=== PATIENT | male | born 1950 | race Caucasian/White ===

== ENCOUNTER 2020-05-01 15:57 | Emergency (ER) | payer MEDICARE ==
--- NOTE | 2020-05-01 17:49 | EDM.PDOC ---
ED HPI GENERAL MEDICAL PROBLEM - General Chief Complaint: General Stated Complaint: FEVER Time Seen by Provider: 05/01/20 16:05 Source of Information: Reports: Patient History Limitations: Reports: No Limitations - History of Present Illness INITIAL COMMENTS - FREE TEXT/NARRATIVE: Patient presented to the ED from the clinic because of 1 day history of cough and cold, fever. There is no N/V/D. Headache Pain Score (Numeric/FACES): 4 - Related Data Allergies Allergy/AdvReac Type Severity Reaction Status Date / Time Latex, Natural Rubber Allergy Unknown UNKNOWN Verified 05/01/20 16:07 Home Meds: Home Meds Cholestyramine (With Sugar) [Questran Powder] 4 - 8 gm PO TIDAC PRN 08/24/14 [History] Citalopram Hydrobromide [Celexa] 20 mg PO DAILY 08/24/14 [History] Docusate Sodium [Colace] 4 tab PO ASDIRECTED PRN 08/24/14 [History] Finasteride [Proscar] 5 mg PO DAILY 08/24/14 [History] Ketoconazole [Nizoral 2% Crm] 1 applic TOP BID PRN 08/24/14 [History] Metoclopramide [Reglan] 5 mg PO TIDAC 08/24/14 [History] Omeprazole [Prilosec] 20 mg PO BIDM 08/24/14 [History] Sucralfate [Carafate] 1 gm PO ASDIRECTED 08/24/14 [History] Acetaminophen [Pain Reliever] 500 mg PO BEDTIME 09/06/15 [History] Ciprofloxacin HCl [Cipro] 250 mg PO BID #20 tablet 08/20/16 [Rx] oxyCODONE HCl/Acetaminophen [Percocet 5-325 mg Tablet] 1 each PO Q4HR PRN #24 tablet 08/20/16 [Rx] Past Medical History HEENT History: Reports: Cataract, Hard of Hearing, Impaired Vision, Retinal Detachment Cardiovascular History: Reports: Hypertension Respiratory History: Reports: None Gastrointestinal History: Reports: Cholelithiasis, GERD, Other (See Below) Other Gastrointestinal History: 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 RASH ON LEGS TREATED BY PRESCRIBED CREAMS NEEDED - Past Surgical History Head Surgeries/Procedures: Reports: None HEENT Surgical History: Reports: Cataract Surgery, Eye Surgery, Oral Surgery, Retinal Social & Family History - Tobacco Use Smoking Status *Q: Former Smoker Used Tobacco, but Quit: Yes Month/Year Tobacco Last Used: Many years ago - Caffeine Use Caffeine Use: Reports: Coffee - Recreational Drug Use Recreational Drug Use: No ED ROS GENERAL - Review of Systems Review Of Systems: See Below Constitutional: Reports: Fever HEENT: Reports: No Symptoms Respiratory: Reports: Cough. Denies: Shortness of Breath Cardiovascular: Reports: No Symptoms Endocrine: Reports: No Symptoms GI/Abdominal: Reports: No Symptoms : Reports: No Symptoms Musculoskeletal: Reports: No Symptoms Skin: Reports: No Symptoms Neurological: Reports: No Symptoms Psychiatric: Reports: No Symptoms Hematologic/Lymphatic: Reports: No Symptoms Immunologic: Reports: No Symptoms ED EXAM, GENERAL - Physical Exam Exam: See Below Exam Limited By: No Limitations General Appearance: Alert, No Apparent Distress Eye Exam: Bilateral Eye: PERRL Ears: Normal External Exam, Normal Canal Nose: Normal Inspection, Normal Mucosa, No Blood Throat/Mouth: Normal Inspection, Normal Lips, Normal Teeth, Normal Gums Head: Atraumatic, Normocephalic Neck: Normal Inspection, Supple, Non-Tender, Full Range of Motion Respiratory/Chest: No Respiratory Distress, Lungs Clear, Normal Breath Sounds Cardiovascular: Normal Peripheral Pulses, Regular Rate, Rhythm, No Edema, No Gallop, No JVD, No Murmur GI/Abdominal: Normal Bowel Sounds, Soft, Non-Tender, No Organomegaly Back Exam: Normal Inspection, Full Range of Motion Extremities: Normal Inspection, Normal Range of Motion, Non-Tender, No Pedal Edema, Normal Capillary Refill Neurological: Alert, Oriented, CN II-XII Intact, Normal Cognition, Normal Gait, Normal Reflexes, No Motor/Sensory Deficits Course - Vital Signs Text/Narrative:: Labs/CXR was reviewed with patient Last Recorded V/S: Last Vital Signs Temp 36.3 C 05/01/20 17:52 Pulse 70 05/01/20 17:52 Resp 18 05/01/20 17:52 BP 129/75 05/01/20 17:52 Pulse Ox 98 05/01/20 17:52 - Orders/Labs/Meds Orders: Active Orders 24 hr Category Date Time Status Chest 1V Frontal [CR] Stat Exams 05/01/20 16:06 Taken Isolation [COMM] Routine Oth 05/01/20 16:07 Ordered Labs: Laboratory Tests 05/01/20 05/01/20 05/01/20 Range/Units 16:17 16:20 16:20 WBC 10.0 (4.5-12.0) X10-3/uL RBC 4.64 (4.30-5.75) x10(6)uL Hgb 13.7 (13.5-17.8) g/dL Hct 40.9 (30.0-51.3) % MCV 88.2 (80-96) fL MCH 29.5 (27.7-33.6) pg MCHC 33.4 (32.2-35.4) g/dL RDW 12.4 (11.5-15.5) % Plt Count 292 (125-369) X10(3)uL MPV 5.3 L (7.4-10.4) fL Neut % (Auto) 77.8 (46-82) % Lymph % (Auto) 11.6 L (13-37) % [place] % (Auto) 10.3 (4-12) % Eos % (Auto) 0 L (1.0-5.0) % Baso % (Auto) 0 (0-2) % Neut # (Auto) 7.8 (1.6-8.3) # Lymph # (Auto) 1.2 (0.6-5.0) # [place] # (Auto) 1.0 (0.0-1.3) # Eos # (Auto) 0.0 (0.0-0.8) # Baso # (Auto) 0.0 (0.0-0.2) # Sodium 131 L (135-145) mmol/L Potassium 4.0 (3.5-5.3) mmol/L Chloride 96 L (100-110) mmol/L Carbon Dioxide 26 (21-32) mmol/L BUN 16 (7-18) mg/dL Creatinine 1.4 H (0.70-1.30) mg/dL Est Cr Clr Drug Dosing 43.04 mL/min Estimated GFR (MDRD) 50 L (>60) BUN/Creatinine Ratio 11.4 (9-20) Glucose 141 H (80-116) mg/dL Lactic Acid (0.4-2.0) mmol/L Calcium 9.3 (8.6-10.2) mg/dL Total Bilirubin 0.9 (0.1-1.3) mg/dL AST 15 (5-25) IU/L ALT 16 (12-36) U/L Alkaline Phosphatase 73 (56-112) IU/L Total Protein 7.6 (6.0-8.0) g/dL Albumin 3.8 (3.2-4.6) g/dL Globulin 3.8 g/dL Albumin/Globulin Ratio 1.0 Urine Color Yellow (YELLOW) Urine Appearance Clear (CLEAR) Urine pH 5.0 (5.0-6.5) Ur Specific [place] 1.005 L (1.010-1.025) Urine Protein Negative (NEGATIVE) mg/dL Urine Glucose (UA) Normal (NORMAL) mg/dL Urine Ketones 15 H (NEGATIVE) mg/dL Urine Occult Blood Negative (NEGATIVE) Urine Nitrite Negative (NEGATIVE) Urine Bilirubin Negative (NEGATIVE) Urine Urobilinogen Normal (NEGATIVE) mg/dL Ur Leukocyte Esterase Negative (NEGATIVE) Urine RBC 0-5 (0-5) Urine WBC 0-5 (0-5) Ur Squamous Epith Cells Occasional (NS,R,O) Urine Bacteria Few H (NS) SARS-CoV-2 RNA (LEVON) (NEGATIVE) 05/01/20 05/01/20 Range/Units 16:20 16:25 WBC (4.5-12.0) X10-3/uL RBC (4.30-5.75) x10(6)uL Hgb (13.5-17.8) g/dL Hct (30.0-51.3) % MCV (80-96) fL MCH (27.7-33.6) pg MCHC (32.2-35.4) g/dL RDW (11.5-15.5) % Plt Count (125-369) X10(3)uL MPV (7.4-10.4) fL Neut % (Auto) (46-82) % Lymph % (Auto) (13-37) % [place] % (Auto) (4-12) % Eos % (Auto) (1.0-5.0) % Baso % (Auto) (0-2) % Neut # (Auto) (1.6-8.3) # Lymph # (Auto) (0.6-5.0) # [place] # (Auto) (0.0-1.3) # Eos # (Auto) (0.0-0.8) # Baso # (Auto) (0.0-0.2) # Sodium (135-145) mmol/L Potassium (3.5-5.3) mmol/L Chloride (100-110) mmol/L Carbon Dioxide (21-32) mmol/L BUN (7-18) mg/dL Creatinine (0.70-1.30) mg/dL Est Cr Clr Drug Dosing mL/min Estimated GFR (MDRD) (>60) BUN/Creatinine Ratio (9-20) Glucose (80-116) mg/dL Lactic Acid 0.9 (0.4-2.0) mmol/L Calcium (8.6-10.2) mg/dL Total Bilirubin (0.1-1.3) mg/dL AST (5-25) IU/L ALT (12-36) U/L Alkaline Phosphatase (56-112) IU/L Total Protein (6.0-8.0) g/dL Albumin (3.2-4.6) g/dL Globulin g/dL Albumin/Globulin Ratio Urine Color (YELLOW) Urine Appearance (CLEAR) Urine pH (5.0-6.5) Ur Specific [place] (1.010-1.025) Urine Protein (NEGATIVE) mg/dL Urine Glucose (UA) (NORMAL) mg/dL Urine Ketones (NEGATIVE) mg/dL Urine Occult Blood (NEGATIVE) Urine Nitrite (NEGATIVE) Urine Bilirubin (NEGATIVE) Urine Urobilinogen (NEGATIVE) mg/dL Ur Leukocyte Esterase (NEGATIVE) Urine RBC (0-5) Urine WBC (0-5) Ur Squamous Epith Cells (NS,R,O) Urine Bacteria (NS) SARS-CoV-2 RNA (LEVON) Negative (NEGATIVE) Departure - Departure Time of Disposition: 17:50 Disposition: Home, Self-Care 01 Condition: Good Clinical Impression: Viral upper respiratory illness - Discharge Information Instructions: Viral Respiratory Infection, [id number] Referrals: Ophelia Keenan, DRAFTING TECHNICIAN [Primary Care Provider] - Forms: ED Department Discharge Additional Instructions: Increase oral fluids Take tylenol 500-650 mg every 4-6 hours as needed for fever pain Follow up as needed Sepsis Event Note (ED) - Evaluation Sepsis Screening Result: No Definite Risk - Focused Exam Vital Signs: Vital Signs Temp Pulse Resp BP Pulse Ox 05/01/20 17:52 36.3 C 70 18 129/75 98 05/01/20 16:28 36.4 C 72 18 122/65 99 05/01/20 16:00 36.5 C 69 18 125/69 98 - My Orders Last 24 Hours: My Active Orders 05/01/20 16:06 Chest 1V Frontal [CR] Stat 05/01/20 16:07 Isolation [COMM] Routine - Assessment/Plan Last 24 Hours: My Active Orders 05/01/20 16:06 Chest 1V Frontal [CR] Stat 05/01/20 16:07 Isolation [COMM] Routine
[2020-05-01 18:25] VITALS: BP 129/75; PULSE 70
--- NOTE | 2020-05-02 16:51 | CR ---
INDICATION: Cough. Fever. CHEST, ONE VIEW: Portable AP upright view of the chest was obtained 05/01/20 - no comparison. Bipolar pacemaker leads are noted with the ventricular lead in the area of the apex of the right ventricle. The heart did not appear grossly enlarged. The aorta is somewhat tortuous with minimal calcifications suggested in the arch. A consolidating pneumonia or effusion was not identified. However, it is difficult to exclude minimal patchy bronchopneumonia at the lung bases which were not particularly well delineated. There also appears to be a degree of hyperaeration of the lungs, and evidence of exogenous obesity. IMPRESSION: No definite acute process, but difficult to exclude minimal patchy bronchopneumonia at the lung bases. MTDD
== END 2020-05-01 18:06 | disposition home or self-care (01) ==
LOC: FB.ED 15:57
DX: J06.9 Acute upper respiratory infection, unspecified (principal); I10 Essential (primary) hypertension; K21.9 Gastro-esophageal reflux disease without esophagitis; F41.9 Anxiety disorder, unspecified; Z87.891 Personal history of nicotine dependence; Z91.040 Latex allergy status; Z20.828 Contact with and (suspected) exposure to other viral communicable diseases
CPT/HCPCS: 36415; 71045; 80053; 81001; 83605; 85025; 87804; 87804-59; 99283-25; U0002

== ENCOUNTER 2020-12-15 01:02 | Observation (INO) | payer MEDICARE ==
[2020-12-15] MEDS ORDERED: Morphine 2 MG/ML SYRINGE IVPUSH ONE (01:32)
--- NOTE | 2020-12-15 01:35 | EDM.PDOC ---
ED HPI GENERAL MEDICAL PROBLEM - General Stated Complaint: SOB Time Seen by Provider: 12/15/20 01:33 Source of Information: Reports: Patient History Limitations: Reports: No Limitations - History of Present Illness INITIAL COMMENTS - FREE TEXT/NARRATIVE: Right sided chest pain since 8PM.Moderate to severe,insidious,progressive. No SOB. Has HTN,HLD.Non smoker. Back Pain Score (Numeric/FACES): 7 Middle Chest Pain Score (Numeric/FACES): 2 - Related Data Allergies Allergy/AdvReac Type Severity Reaction Status Date / Time Latex, Natural Rubber Allergy Unknown UNKNOWN Verified 12/15/20 04:49 Home Meds: Home Meds Cholestyramine (With Sugar) [Questran Powder] 4 gm PO DAILY PRN 08/24/14 [History] Citalopram Hydrobromide [Celexa] 30 mg PO BEDTIME 08/24/14 [History] Metoclopramide [Reglan] 5 mg PO TIDAC 08/24/14 [History] Omeprazole [Prilosec] 20 mg PO BIDAC 08/24/14 [History] Sucralfate [Carafate] 1 gm PO QIDACANDBED 08/24/14 [History] Acetaminophen [Pain Reliever] 500 mg PO BEDTIME 09/06/15 [History] Betamethasone Dipropionate [Diprolene AF 0.05% Crm] 1 applic TOP BID 12/15/20 [History] Ciclopirox [Loprox 0.77% Crm] 1 applic TOP BID 12/15/20 [History] Fluticasone Propionate [Flonase] 2 sprays NASBOTH DAILY 12/15/20 [History] Furosemide 20 mg PO DAILY PRN 12/15/20 [History] Mecobalamin [B12 Active] 1,000 mcg PO DAILY 12/15/20 [History] Rosuvastatin [Crestor] 10 mg PO DAILY 12/15/20 [History] amLODIPine [Norvasc] 7.5 mg PO DAILY 12/15/20 [History] busPIRone [Buspar] 5 mg PO BID 12/15/20 [History] lisinopriL [Lisinopril] 5 mg PO DAILY 12/15/20 [History] Aspirin [Ecotrin EC] 650 mg PO QID tab.ec 12/16/20 [Rx] Magnesium Oxide 500 mg PO BID 12/16/20 [History] Tamsulosin [Flomax] 0.8 mg PO DAILY 12/16/20 [History] Past Medical History HEENT History: Reports: Cataract, Hard of Hearing, Impaired Vision, Retinal D etachment Cardiovascular History: Reports: Hypertension Respiratory History: Reports: None Gastrointestinal History: Reports: Cholelithiasis, GERD, Other (See Below) Other Gastrointestinal History: 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 RASH ON LEGS TREATED BY PRESCRIBED CREAMS NEEDED - Past Surgical History Head Surgeries/Procedures: Reports: None HEENT Surgical History: Reports: Cataract Surgery, Eye Surgery, Oral Surgery, Retinal Social & Family History - Caffeine Use Caffeine Use: Reports: Coffee ED ROS GENERAL - Review of Systems Review Of Systems: Comprehensive ROS is negative, except as noted in HPI. ED EXAM, GENERAL - Physical Exam Exam: See Below Exam Limited By: No Limitations General Appearance: Alert, WD/WN, No Apparent Distress Throat/Mouth: Normal Inspection, Normal Lips Head: Atraumatic Neck: Normal Inspection, Supple Respiratory/Chest: No Respiratory Distress Cardiovascular: Normal Peripheral Pulses, Irregularly Irregular GI/Abdominal: No Distention Back Exam: Normal Inspection Neurological: Alert, Oriented Psychiatric: Normal Affect Skin Exam: Warm #1 Interpretation EKG Date: 12/15/20 Rhythm: A-Fib Comparison: NA - No Prior EKG #2 Interpretation EKG Date: 12/15/20 Rhythm: NSR Comparison: Change From Previous EKG Course - Vital Signs Last Recorded V/S: Last Vital Signs Temp 97.7 F 12/16/20 16:00 Pulse 69 12/16/20 16:00 Resp 16 12/16/20 16:00 BP 123/63 12/16/20 16:00 Pulse Ox 97 12/16/20 16:00 - Orders/Labs/Meds Labs: Laboratory Tests 12/15/20 12/15/20 12/15/20 Range/Units 01:30 01:30 01:30 WBC 10.8 H (3.2-10.1) x10-3/uL RBC 4.33 (3.90-5.90) x10(6)uL Hgb 13.2 (12.9-17.7) g/dL Hct 39.2 (38.3-50.1) % MCV 90.4 (80.8-98.7) fL MCH 30.5 (27.0-33.3) pg MCHC 33.8 (28.7-35.3) g/dL RDW 13.5 (12.4-15.0) % Plt Count 228 (117-477) x10(3)uL MPV 6.2 L (6.7-11.0) fL Neut % (Auto) 77.5 H (40.3-71.8) % Lymph % (Auto) 11.0 L (15.8-45.3) % [place] % (Auto) 9.8 (5.5-15.2) % Eos % (Auto) 1.3 (0.1-6.8) % Baso % (Auto) 0.4 (0.3-3.8) % Neut # (Auto) 8.4 H (1.7-6.9) x10-3/uL Lymph # (Auto) 1.2 (0.5-4.5) x10-3/uL [place] # (Auto) 1.1 (0.0-1.2) x10-3/uL Eos # (Auto) 0.1 (0.0-0.6) x10-3/uL Baso # (Auto) 0.0 (0.0-0.3) x10-3/uL D-Dimer, Quantitative 0.48 (0.0-0.59) mg/LFEU Sodium (135-145) mmol/L Potassium (3.5-5.3) mmol/L Chloride (100-110) mmol/L Carbon Dioxide (21-32) mmol/L BUN (7-18) mg/dL Creatinine (0.70-1.30) mg/dL Est Cr Clr Drug Dosing Estimated GFR (MDRD) (>60) BUN/Creatinine Ratio (9-20) Glucose (80-116) mg/dL Calcium (8.6-10.2) mg/dL Total Bilirubin (0.1-1.3) mg/dL AST (5-25) IU/L ALT (12-36) U/L Alkaline Phosphatase (56-112) IU/L Troponin I 7.0 (4.0-60.3) pg/mL NT-Pro-B Natriuret Pep (<=125) pg/mL Total Protein (6.0-8.0) g/dL Albumin (3.2-4.6) g/dL Globulin g/dL Albumin/Globulin Ratio TSH, Ultra Sensitive (0.36-3.74) IU/mL 12/15/20 12/15/20 12/15/20 Range/Units 01:30 01:30 01:30 WBC (3.2-10.1) x10-3/uL RBC (3.90-5.90) x10(6)uL Hgb (12.9-17.7) g/dL Hct (38.3-50.1) % MCV (80.8-98.7) fL MCH (27.0-33.3) pg MCHC (28.7-35.3) g/dL RDW (12.4-15.0) % Plt Count (117-477) x10(3)uL MPV (6.7-11.0) fL Neut % (Auto) (40.3-71.8) % Lymph % (Auto) (15.8-45.3) % [place] % (Auto) (5.5-15.2) % Eos % (Auto) (0.1-6.8) % Baso % (Auto) (0.3-3.8) % Neut # (Auto) (1.7-6.9) x10-3/uL Lymph # (Auto) (0.5-4.5) x10-3/uL [place] # (Auto) (0.0-1.2) x10-3/uL Eos # (Auto) (0.0-0.6) x10-3/uL Baso # (Auto) (0.0-0.3) x10-3/uL D-Dimer, Quantitative (0.0-0.59) mg/LFEU Sodium 133 L (135-145) mmol/L Potassium 4.3 (3.5-5.3) mmol/L Chloride 98 L (100-110) mmol/L Carbon Dioxide 21 (21-32) mmol/L BUN 19 H (7-18) mg/dL Creatinine 1.3 (0.70-1.30) mg/dL Est Cr Clr Drug Dosing TNP Estimated GFR (MDRD) 54 L (>60) BUN/Creatinine Ratio 14.6 (9-20) Glucose 132 H (80-116) mg/dL Calcium 8.9 (8.6-10.2) mg/dL Total Bilirubin 0.8 (0.1-1.3) mg/dL AST 15 (5-25) IU/L ALT 17 (12-36) U/L Alkaline Phosphatase 94 (56-112) IU/L Troponin I (4.0-60.3) pg/mL NT-Pro-B Natriuret Pep 47 (<=125) pg/mL Total Protein 7.4 (6.0-8.0) g/dL Albumin 3.8 (3.2-4.6) g/dL Globulin 3.6 g/dL Albumin/Globulin Ratio 1.1 TSH, Ultra Sensitive 1.75 (0.36-3.74) IU/mL Meds: Medications Discontinued Medications Generic Name Dose Route Start Last Admin Trade Name Freq PRN Reason Stop Dose Admin Amlodipine Besylate 7.5 mg 12/16/20 10:45 12/16/20 11:36 Amlodipine 5 Mg Tab *Ptom* PO 7.5 mg DAILY RUSSELL Administration Aspirin 324 mg 12/15/20 01:49 12/15/20 01:16 Aspirin 81 Mg Tab.Chew PO 12/15/20 01:50 324 mg ONETIME ONE Administration Aspirin 650 mg 12/16/20 11:25 12/16/20 11:52 Aspirin 325 Mg Tab.Ec PO 650 mg QIDPCANDBED RUSSELL Administration Aspirin 650 mg 12/16/20 17:00 12/16/20 17:09 Aspirin 325 Mg Tab.Ec PO 650 mg QID RUSSELL Administration Buspirone HCl 5 mg 12/16/20 10:45 12/16/20 11:34 Buspirone 10 Mg Tab *Ptom* PO 5 mg BID RUSSELL Administration Citalopram Hydrobromide 30 mg 12/16/20 21:00 Citalopram 20 Mg Tab *Ptom* PO BEDTIME RUSSELL Al Hydroxide/Mg Hydroxide 15 0 ml 12/15/20 02:24 12/15/20 03:13 ml/ Lidocaine HCl 15 ml PO 12/15/20 02:25 30 ml ONETIME ONE Administration Enoxaparin Sodium 40 mg 12/15/20 02:15 12/15/20 04:12 Enoxaparin 40 Mg/0.4 Ml Syringe SUBCUT 40 mg Q24H RUSSELL Administration Enoxaparin Sodium 40 mg 12/15/20 21:00 12/15/20 21:35 Enoxaparin 40 Mg/0.4 Ml Syringe SUBCUT 40 mg BEDTIME RUSSELL Administration Hydromorphone HCl 1 mg 12/15/20 13:27 12/15/20 18:56 Hydromorphone 2 Mg/Ml Sdv IVPUSH 1 mg Q2H PRN Administration Pain (moderate 4-6) Potassium Chloride/Dextrose/Sod Cl 1,000 mls @ 100 mls/hr 12/15/20 09:15 12/16/20 07:46 D5 Ns With 20 Meq Kcl IV 100 mls/hr ASDIRECTED RUSSELL Administration Iopamidol 100 ml 12/15/20 14:30 12/15/20 15:05 Iopamidol 755 Mg/Ml 100 Ml Bottle IV 100 ml . DIRECTED RUSSELL Administration Lisinopril 5 mg 12/16/20 10:45 12/16/20 11:37 Lisinopril 5 Mg Tab *Ptom* PO 5 mg DAILY RUSSELL Administration Methylprednisolone Sodium Succinate 40 mg 12/15/20 17:00 12/16/20 05:23 Methylprednisolone Sodium Succinate 40 Mg/1 Ml Sdv IVPUSH 40 mg Q6H RUSSELL Administration Metoclopramide HCl 5 mg 12/15/20 11:30 12/16/20 17:11 Metoclopramide 5 Mg Tab *Ptom* PO 5 mg TIDAC RUSSELL Administration Morphine Sulfate 2 mg 12/15/20 01:32 12/15/20 01:44 Morphine 2 Mg/Ml Syringe IVPUSH 12/15/20 01:33 2 mg ONETIME ONE Administration Morphine Sulfate 2 mg 12/15/20 02:03 12/15/20 03:13 Morphine 2 Mg/Ml Syringe IVPUSH 2 mg Q2H PRN Administration Pain (severe 7-10) Nitroglycerin 0.4 mg 12/15/20 01:50 12/15/20 01:17 Nitroglycerin 0.4 Mg Tab.Sl SL 12/15/20 01:51 0.4 mg ONETIME ONE Administration Non-Formulary Medication 4 gm 12/16/20 10:32 Cholestyramine (With Sugar) [Questran Powder] PO DAILY PRN Other Omeprazole [Prilosec 20 mg 12/16/20 17:30 12/16/20 17:11 ] 20 Mg Capsule.Dr * PO 20 mg Ptom* BIDAC RUSSELL Administration Ondansetron HCl 4 mg 12/15/20 02:03 12/15/20 12:56 Ondansetron 4 Mg/2 Ml Sdv IV 4 mg Q4H PRN Administration Nausea/Vomiting Pantoprazole Sodium 40 mg 12/15/20 14:15 12/15/20 15:41 Pantoprazole 40 Mg Vial IVPUSH 40 mg Q12H RUSSELL Administration Pantoprazole Sodium 40 mg 12/16/20 06:00 12/16/20 17:55 Pantoprazole 40 Mg Vial IVPUSH Not Given Q12H RUSSELL Polyethylene Glycol 17 gm 12/16/20 10:45 12/16/20 11:35 Polyethylene Glycol 3350 Powder 17 Gm Packet PO 17 gm DAILY RUSSELL Administration Rosuvastatin Calcium 10 mg 12/17/20 09:00 Rosuvastatin 10 Mg Tab *Ptom* PO DAILY RUSSELL Sodium Chloride 10 ml 12/15/20 04:51 Sodium Chloride 0.9% 10 Ml Syringe FLUSH ASDIRECTED PRN IV Use Sucralfate 1 gm 12/16/20 11:30 12/16/20 17:10 Sucralfate 1 Gm Tab *Ptom* PO 1 gm QIDACANDBED RUSSELL Administration Departure - Departure Time of Disposition: 09:29 Disposition: Refer to Observation Condition: Good Clinical Impression: Atypical chest pain - Problem List & Annotations (1) Chest pain SNOMED Code(s): 33434927 Code(s): R07.9 - CHEST PAIN, UNSPECIFIED Status: Acute Qualifiers: Chest pain type: unspecified Qualified Code(s): R07.9 - Chest pain, unspecified (2) Afib SNOMED Code(s): 80491499 Code(s): I48.91 - UNSPECIFIED ATRIAL FIBRILLATION Status: Acute Qualifiers: Atrial fibrillation type: unspecified Qualified Code(s): I48.91 - Unspecified atrial fibrillation (3) HTN (hypertension) SNOMED Code(s): 39759324 Code(s): I10 - ESSENTIAL (PRIMARY) HYPERTENSION Status: Acute Qualifiers: Hypertension type: essential hypertension Qualified Code(s): I10 - Essential (primary) hypertension (4) HLD (hyperlipidemia) SNOMED Code(s): 38006360 Code(s): E78.5 - HYPERLIPIDEMIA, UNSPECIFIED Status: Acute Qualifiers: Hyperlipidemia type: unspecified Qualified Code(s): E78.5 - Hyperlipidemia, unspecified - Problem List Review Problem List Initiated/Reviewed/Updated: Yes - Assessment/Plan Plan: Admit for observation
[2020-12-15] MEDS ORDERED: Aspirin 81 MG Tab.Chew PO ONE (01:49)
[2020-12-15] MEDS ORDERED: Nitroglycerin 0.4 MG Tab.SL SL ONE (01:50)
[2020-12-15] MEDS ORDERED: Morphine 2 MG/ML SYRINGE IVPUSH PRN (02:03)
[2020-12-15] MEDS ORDERED: Enoxaparin 40 MG/0.4 ML Syringe SUBCUT SCH ×2 (02:15→21:00)
[2020-12-15] MEDS ORDERED: Alum Hydroxide/Mag Hydroxide 15 ML, Lidocaine 2% 15 ML PO ONE ×2 (02:24)
[2020-12-15] MEDS: Ondansetron 4 MG/2 ML SDV IV PRN ×2 (03:36→12:56)
[2020-12-15] MEDS ORDERED: Sodium Chloride 0.9% 10 ML Syringe FLUSH PRN (04:51)
[2020-12-15] MEDS: Dextrose 5%-0.9% NaCl with KCl 1,000 ML IV SCH ×2 (10:02→21:35)
[2020-12-15] MEDS: METOCLOPRAMIDE 5 MG PO SCH ×2 (10:47→17:01)
--- NOTE | 2020-12-15 11:41 | HP ---
ADMISSION DATE: 12/15/2020 REASON FOR VISIT: Vague epigastric, nonspecific chest pain. HISTORY OF PRESENT ILLNESS: Juvencio Terry is a 70-year-old male who was seen at [facility] ER on the evening of 12/14/2020. Had an unremarkable day. He spent today moving a daughter. Got home at about 7 o'clock, felt a little bit of dis-ease. Some vague chest pain, a little pleuritic chest pain, worse with deep breath, movement, and cough, and a sense of GI upset. The pain intensified necessitating evaluation. He was admitted to the floor. Had a couple of episodes of noodle GI contents in the credit compliance officer hours upon admission. He was seen at 8:30 a.m. for admitting history and physical. Feeling somewhat better this morning, but still having vague symptoms. A sense of nausea and reduced well-being. History of cholecystectomy, history of gastric ulcer surgery, history of appendectomy. MEDICATIONS: Daily medications include: 1. Cholestyramine 17 g daily, dumping syndrome. 2. Ciprofloxacin 250 b.i.d., recent UTI. 3. Citalopram 20 mg 1 p.o. daily, mood stabilizer. 4. Docusate 1 daily, constipation. 5. Finasteride 5 mg 1 p.o. a day, BPH. 6. Ketoconazole cream p.r.n., rash. 7. Reglan 5 mg t.i.d., GI . 8. Carafate 1 g q.i.d. 9. Prilosec 20 mg b.i.d. ALLERGIES: Latex and natural rubber. No other medication, environmental, or latex allergies. PAST MEDICAL HISTORY: Significant for previous operative procedures including cholecystectomy, stomach/gastric ulcer surgery, and appendectomy. Had a pacemaker placed about 3 years ago. Treated medical problems include BPH, constipation, post cholecystectomy dumping syndrome, gastritis, and duodenitis. 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 Happily . Has 3 biological children, 2 step children to his . Two pack per day smoker, quit about 3 years ago. Minimal alcohol consumption, couple of beers 3 times a week. No illicit drug use. FAMILY HISTORY: Mom of complications of ovarian cancer, dad of unknown cause. Three living brothers, 2 living sisters. One sister in infancy. One brother at age 28 in a motor vehicle fire injury. REVIEW OF SYSTEMS: CONSTITUTIONAL: Feeling little better this morning. EYES: Sees well. EARS: Difficulty in crowds, his hearing aids are not in place. OROPHARYNX: Intact dentition. GI: Please see HPI. RESPIRATORY: Please see HPI. CV: Please see HPI. : Nocturia x1, decreased stream. SKIN: No lesions, eruptions, or moles. ENDOCRINE: No excessive thirst or urination. PSYCHIATRIC: Mood was stable, citalopram on board. PHYSICAL EXAMINATION: VITAL SIGNS: 1.7 m is the height, 89.539 kg, 36.7, 72, 137/56, 20, 96% on room air. GENERAL: Middle-aged gentleman, appears stated age, cooperative, conversant. HEENT: Funduscopic, benign. Conjunctivae clear. Bright tympanic membranes. Decreased hearing. Clear nasal discharge. Midline septum. Mouth and oropharynx clear. Fair dentition. Tongue midline. NECK: Benign. Thyroid small. No carotid bruits. CHEST: On auscultation, clear in all lung jean . HEART: On auscultation, no ectopy or murmur. Pacemaker present in left upper chest wall. ABDOMEN: Benign. Little tender epigastric area. Surgical scar, epigastric, right upper quadrant, lower abdomen, right side. Good bowel sounds. : Normal male genitalia. Hernias absent. RECTAL: Declined. EXTREMITIES: Well perfused. NEUROMUSCULAR: Intact. LABORATORY STUDIES: CBC revealed white count 10,800, hemoglobin 13.2, hematocrit 39.2, normal indices. Sodium 133, potassium 4.3, BUN 19, creatinine 1.3, GFR 54, repeat 56. Troponin x2 were negative, D-dimer comfortable at 0.48. Radiographs have been performed, but not obtainable. ASSESSMENT: Acute gastrointestinal mild atypical chest pain, origin uncertain. PLAN: Continue medications and care, we will start IV, medications on board for pain, morphine sulfate, IV Zofran, cocktail in place. Expectation for short- term stay. We will do a KUB and upright of his abdomen to rule out obstructive process. /[id number] /GERONIMOL
[2020-12-15] MEDS: HYDROmorphone 2 MG/ML SDV IVPUSH PRN ×2 (13:39→18:56)
[2020-12-15] MEDS ORDERED: Pantoprazole 40 MG Vial IVPUSH SCH (14:15)
[2020-12-15] MEDS ORDERED: Iopamidol 755 Mg/ML 100 ML Bottle IV SCH (14:30)
[2020-12-15] MEDS ORDERED: Enoxaparin 30 MG/0.3 ML Syringe SUBCUT SCH (16:45)
[2020-12-15] MEDS: methylPREDNISolone Sodium Succinate 40 MG/1 ML SDV IVPUSH SCH ×2 (17:01→21:59)
[2020-12-16] MEDS: methylPREDNISolone Sodium Succinate 40 MG/1 ML SDV IVPUSH SCH (05:23)
[2020-12-16] MEDS: Pantoprazole 40 MG Vial IVPUSH SCH ×2 (05:23→17:55)
[2020-12-16] MEDS: METOCLOPRAMIDE 5 MG PO SCH ×3 (06:32→17:11)
[2020-12-16] MEDS: Dextrose 5%-0.9% NaCl with KCl 1,000 ML IV SCH (07:46)
[2020-12-16] MEDS ORDERED: [UNRECOGNIZED DRUG - OTHER] PO PRN (10:32)
[2020-12-16] MEDS ORDERED: Polyethylene Glycol 3350 Powder 17 GM Packet PO SCH (10:45)
[2020-12-16] MEDS ORDERED: Lisinopril 5 MG Tab *PTOM PO SCH (10:45)
[2020-12-16] MEDS ORDERED: amLODIPine 5 MG Tab *PTOM PO SCH (10:45)
[2020-12-16] MEDS ORDERED: BUSPIRONE 10 MG PO SCH (10:45)
--- NOTE | 2020-12-16 11:14 | CR ---
INDICATION: Chest pain. CHEST, ONE VIEW: An AP portable upright view of the chest 12/15/20 was compared with 05/01/20 and revealed the heart to remain normal in size and shape with bipolar pacemaker leads unchanged in position. Overlying EKG leads are noted. Heavy markings are noted at the lung bases making it difficult to exclude areas of patchy bronchopneumonia. However, a definite consolidating pneumonia or effusion was not identified. Calcifications are noted in the arch of the aorta. IMPRESSION: 1. No definite acute process but difficult to exclude patchy bronchopneumonia at the lung bases. Full inspiration PA and lateral views of the chest may be helpful in that regard. 2. ASD aorta with normal heart size and bipolar pacemaker leads unchanged in position. MTDD
--- NOTE | 2020-12-16 11:21 | CR ---
INDICATION: Epigastric pain and vomiting. ABDOMEN, TWO VIEWS: Four images of the abdomen with supine and upright projections were obtained 12/15/[address] of the abdomen from 09/28/12. Evidence of surgery is again noted in the epigastrium including probable gastric surgery and post-cholecystectomy changes. The pattern of gas and feces is nonspecific without evidence of free air or a definite obstructive process. A mass in the pelvis most likely represents distended urinary bladder. Gas and stool is noted in the area of the rectum. No definite organomegaly or mass lesions were identified. IMPRESSION: Nonacute abdomen. MTDD
[2020-12-16] MEDS ORDERED: Aspirin 325 MG Tab.EC PO SCH ×2 (11:25→17:00)
[2020-12-16] MEDS: Sucralfate 1 GM Tab *PTOM PO SCH ×2 (11:40→17:10)
--- NOTE | 2020-12-16 12:39 | PN ---
DATE SEEN: 12/15/2020 TIME: 5 p.m. Juvencio Acevedo is a 70-year-old male admitted with a peculiar pleuritic chest pain. CT chest and CT abdomen revealed no pathology, there was no thoracic aortic aneurysm, no signs of complicating issues. Abdomen CT similarly fine. He will be placed on some IV steroids, strong suspicion for pericarditis, both clinically with pain with worse pain with lying down, better sitting up, and some ST-T changes consistent with pericarditis. We will make observation and treatment in the meantime, switch to oral aspirin accordingly. /[id number] CORINE/MARLI
--- NOTE | 2020-12-16 12:50 | PN ---
DATE SEEN: 12/16/2020 SUBJECTIVE: Juvencio Acevedo is a 70-year-old male admitted with some vague abdominal and chest pain. Strong suspicion for pericarditis, radiographic EKG changes noted. Troponins x3 were negative, sedimentation rate returned 18, troponin 7, 4.8, 4.4. TSH within normal limits. CRP pending. Had a good night. Pain resolved. He is much more comfortable. Anxious to have a bowel movement. Laboratory studies noted. OBJECTIVE: VITAL SIGNS: 36.4, 77, 118/46, 18, 97 on room air. GENERAL: Appears much more comfortable. HEENT: Mouth and oropharynx clear. NECK: Benign. Thyroid small. CHEST: Clear in all lung jean. HEART: Distant heart sounds. No ectopy. No friction rub noted. ABDOMEN: Benign. IMPRESSION: Questionable pericarditis, much improved. PLAN: We will switch from IV steroids to oral aspirin 650 q.i.d. with meals. Discontinue IV. Discontinue telemetry. Restart medications and care. Comfortable. They will go home this evening. /[id number] /MARLI
[2020-12-16 16:26] VITALS: BP 123/63; PULSE 69
[2020-12-16] MEDS ORDERED: OMEPRAZOLE 20 MG PO SCH (17:30)
[2020-12-16] MEDS ORDERED: Citalopram 20 MG Tab *PTOM PO SCH (21:00)
--- NOTE | 2020-12-17 06:57 | DISCH ---
DISCHARGE DATE: 12/16/2020 Juvencio Terry is a 70-year-old male admitted through [facility] ER. Presented with some atypical precordial chest pain. ER intervention was noted timely. Etiology of chest pain was unclear to begin with. Diagnostic studies; chest x-ray revealed no acute process. Pacemaker was in place. Examination revealed no particular abnormal physical findings. Laboratory studies were performed. Serial troponins x3 were negative and unremarkable. The pain was atypical, but precordial. Markedly worse when laid down, better when he sat up. CTA chest revealed no pathology, no thoracic aneurysms, no PE. CT abdomen revealed no pathology, postsurgical changes, and absence of gallbladder. EKG revealed strong suspicion for pericarditis with some ST changes, nonischemic ST-T changes. Has a long history of GI issues and previous gastric surgery for ulcer disease. He is on active therapy with Carafate and proton pump inhibitor. They will continue during his hospital stay. Because of pericarditis was given one dose of IV steroids on the evening of 12/15/2020, with prompt resolution of pain. He was started on a short course of aspirin therapy 325 mg two p.o. q.i.d. taken with food. [place] to be a short-term initial intervention for pericarditis. Tolerated well. At the time of discharge, he was pain-free, laboratory studies were reviewed and all were without complicating issue. PHYSICAL EXAMINATION: VITAL SIGNS: 36.5, 123/63, 16, 97% on room air. GENERAL: Appears comfortable. Speech was fluent. NECK: Benign. Thyroid small. No carotid bruits. CHEST: On auscultation, clear in all lung jean. HEART: No ectopy or murmur. Pacemaker present in left upper chest wall. ABDOMEN: Benign. The patient was discharged home with three days of aspirin 650 two p.o. q.i.d. taken with food. Continue GI medications, proton pump inhibitor, and Carafate taken with food. After three days of pain-free, no continued use. If pain reappears, reconsideration to be noted. He will have appointment with Ree at [facility] in 1 weeks' time. SURGICAL PROCEDURES: None. CONSULTATION: None. /[id number] CORINE/MARLI
[2020-12-17] MEDS ORDERED: Rosuvastatin 10 MG Tab *PTOM PO SCH (09:00)
== END 2020-12-16 18:25 | disposition home or self-care (01) ==
LOC: FB.ED 01:02 → FB.MS 02:26
PROVIDERS: ADMIT Family Medicine; ATTEND Family Medicine
DX: R07.2 Precordial pain (principal); I48.91 Unspecified atrial fibrillation; R10.9 Unspecified abdominal pain; I10 Essential (primary) hypertension; E78.5 Hyperlipidemia, unspecified; Z20.822 Contact with and (suspected) exposure to COVID-19; Z91.040 Latex allergy status; Z91.09 Other allergy status, other than to drugs and biological substances; Z79.899 Other long term (current) drug therapy; Z95.0 Presence of cardiac pacemaker
CPT/HCPCS: 36415; 71045; 71275; 74019; 74177; 80053; 83880; 84443; 84484; 85025; 85379; 85651; 93005; A9270-GY; C9113; J1170; J1650; J2270; J2405; J2920; J3480; Q9967; U0002